=== PATIENT | male | born 1965 | race Caucasian/White ===

== ENCOUNTER 2017-05-27 09:11 | Inpatient (IN) | payer OTHER ==
[~2017-05-27] VITALS: Ht 182.9 cm; Wt 94.1 kg
[2017-05-27 09:25] VITALS: BP 123/78; PULSE 80; RESP 18; TEMP 97.5; O2SAT 98
[2017-05-27 09:32] VITALS: BP 123/78; PULSE 81; RESP 18; TEMP 97.5; O2SAT 98
[2017-05-27] MEDS ORDERED: SODIUM CHLOR 0.9% 1000 ML INJ 1,000 ML IV ONE (09:45)
[2017-05-27] MEDS ORDERED: HYDROmorphone HCL PF 1 MG/ML VIAL IV PUSH ONE (09:45)
[2017-05-27 09:51] LABS: AUTOMATED NEUTROPHIL # 12.5 TH/MM3 (1.8-7.7); BASOPHIL # 0.1 TH/MM3 (0-0.2); BASOPHIL % 0.8 % (0.0-2.0); EOSINOPHIL % 0.2 % (0.0-4.0); HEMATOCRIT 42.1 % (39.0-51.0); HEMO FLAGS DIFF FINAL; LYMPH % 6.6 % (9.0-44.0); LYMPHOCYTE # 0.9 TH/MM3 (1.0-4.8); MEAN CELL VOLUME 93.7 FL (80.0-100.0); MEAN CORPUSCULAR HEMOGLOBIN 31.4 PG (27.0-34.0); MEAN CORPUSCULAR HGB CONC 33.5 % (32.0-36.0); MONO % 4.3 % (0.0-8.0); NEUT % 88.1 % (16.0-70.0); PLATELET COUNT 272 TH/MM3 (150-450); RED BLOOD COUNT 4.49 MIL/MM3 (4.50-5.90); RED CELL DISTRIBUTION WIDTH 14.5 % (11.6-17.2); WHITE BLOOD COUNT 14.2 TH/MM3 (4.0-11.0)
[2017-05-27 10:10] LABS: BICARBONATE 28.5 MEQ/L (21.0-32.0); POTASSIUM 3.3 MEQ/L (3.5-5.1)
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
[2017-05-27] MEDS ORDERED: IOHEXOL 350 MG/ML 10 ML VIAL (for RAD DIAG) IV ONE (10:46)
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
[2017-05-27] MEDS ORDERED: LIDOCAINE 1%/EPINEPHrine 1:100,000 SOLN 20 ML VIAL INFIL ONE (11:30)
--- NOTE | 2017-05-27 11:58 | PD ---
Physical Exam Date Seen by Provider: May 27, 2017 Time Seen by Provider: 11:57 Narrative 52-year-old male that presents to the ED for evaluation of laceration to the right elbow. I was asked by my attending to repair laceration. Please refer to her note. Data Data Last Documented VS Vital Signs Date Time Temp Pulse Resp B/P Pulse Ox O2 Delivery O2 Flow Rate FiO2 05/27/17 10:23 18 05/27/17 09:32 80 98 Room Air 05/27/17 09:32 97.5 123/78 Orders Complete Blood Count With Diff (05/27/17 09:26) Basic Metabolic Panel (Bmp) (05/27/17 09:26) ^ Insert Iv (05/27/17 09:26) Ct Brain W/O Iv Contrast(Rout) (05/27/17 ) Ct Cerv Spine W/O Contrast (05/27/17 ) Ct Thorax/ Chest W Iv Contrast (05/27/17 ) Ct Abd/Pel W Iv Contrast(Rout) (05/27/17 ) Ct Facial Bones W/O Iv Cont (05/27/17 ) Wrist, Complete ([id number]) (05/27/17 ) Elbow, Limited (Ap&Lat) (05/27/17 ) Ankle, Complete (Qwa0qac) (05/27/17 ) Shoulder, Limited(2vws) (05/27/17 ) Ct Thor Spine W/O Contrast (05/27/17 ) Hydromorphone Pf Inj (Dilaudid Pf Inj) (05/27/17 09:45) Sodium Chlor 0.9% 1000 Ml Inj (Ns 1000 M (05/27/17 09:45) Iohexol 350 Inj (Omnipaque 350 Inj) (05/27/17 10:46) Fiberglass Sugartong Sp Ad Arm (05/27/17 ) Fiberglass Splint Forearm Adul (05/27/17 ) Sling Cradle Arm (05/27/17 ) Wound Care (05/27/17 11:19) Lidocai-Epi 1%-1:100,000 Inj (Xylocaine- (05/27/17 11:30) Labs Laboratory Tests Test 05/27/17 09:40 White Blood Count 14.2 TH/MM3 Red Blood Count 4.49 MIL/MM3 Hemoglobin 14.1 GM/DL Hematocrit 42.1 % Mean Corpuscular Volume 93.7 FL Mean Corpuscular Hemoglobin 31.4 PG Mean Corpuscular Hemoglobin 33.5 % Concent Red Cell Distribution Width 14.5 % Platelet Count 272 TH/MM3 Mean Platelet Volume 7.0 FL Neutrophils (%) (Auto) 88.1 % Lymphocytes (%) (Auto) 6.6 % Monocytes (%) (Auto) 4.3 % Eosinophils (%) (Auto) 0.2 % Basophils (%) (Auto) 0.8 % Neutrophils # (Auto) 12.5 TH/MM3 Lymphocytes # (Auto) 0.9 TH/MM3 Monocytes # (Auto) 0.6 TH/MM3 Eosinophils # (Auto) 0.0 TH/MM3 Basophils # (Auto) 0.1 TH/MM3 CBC Comment DIFF FINAL Differential Comment Sodium Level 141 MEQ/L Potassium Level 3.3 MEQ/L Chloride Level 106 MEQ/L Carbon Dioxide Level 28.5 MEQ/L Anion Gap 7 MEQ/L Blood Urea Nitrogen 6 MG/DL Creatinine 0.99 MG/DL Estimat Glomerular Filtration 80 ML/MIN Rate Random Glucose 114 MG/DL Calcium Level 8.2 MG/DL [facility] Medical Record Reviewed: Yes Supervised Visit with IAN: No Procedures Procedure Narrative LACERATION LOCATION: Right elbow LENGTH: 6 cm NUMBER OF STITCHES/DAJUAN: 16 dajuan REPAIR: The area of the laceration was prepped with Betadine and sterilely draped. The laceration was infiltrated with 1% Xylocaine. The wound was copiously irrigated and explored without evidence of foreign body, tendon injury or neurovascular injury. The wound was closed using sterile stapler. This was a 1 layer repair. A sterile dressing was applied. The patient was advised to keep the dressing clean and dry. Patient tolerated the procedure well. Tho Lindquist May 27, 2017 11:58
[2017-05-27 12:00] VITALS: BP 115/68; PULSE 80; RESP 18; O2SAT 100
[2017-05-27] MEDS ORDERED: HYDROmorphone HCL PF 1 MG/ML VIAL IVP PRN (12:30)
[2017-05-27] MEDS ORDERED: MISCELLANEOUS NURSING INFORMATION XX SCH (12:30)
[2017-05-27] MEDS ORDERED: ONDANSETRON HCL 4 MG/2 ML VIAL IV PRN (12:30)
[2017-05-27] MEDS ORDERED: CHLORHEXIDINE GLUCONATE 2 % 1 PACK (2 CLOTHS) TOP PRN (12:30)
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
[2017-05-27] MEDS: LACTATED RINGER'S 1000 ML INJ 1,000 ML IV SCH ×2 (14:55→21:39)
[2017-05-27 15:00] VITALS: BP 96/56; PULSE 82; RESP 18; O2SAT 99
[2017-05-27] MEDS: METHOCARBAMOL 500 MG TAB PO SCH ×2 (15:13→21:39)
[2017-05-27] MEDS: HYDROmorphone HCL PF 1 MG/ML VIAL IVP PRN ×2 (15:56→21:40)
[2017-05-27 16:00] VITALS: BP 117/54; PULSE 76; RESP 20; TEMP 96.7; O2SAT 96
[2017-05-27 19:00] VITALS: BP 112/56; PULSE 78; RESP 18; TEMP 98.4; O2SAT 96
[2017-05-27] MEDS: DOCUSATE SODIUM 100 MG CAP PO SCH (21:31)
[2017-05-28] VITALS (9 sets, daily range): BP systolic 106–168; BP diastolic 62–96; PULSE 71–93; RESP 16–19; TEMP 95.7–98.4; O2SAT 93–100
[2017-05-28] MEDS: CHLORHEXIDINE GLUCONATE 2 % 1 PACK (2 CLOTHS) TOP SCH (00:02)
[2017-05-28] MEDS ORDERED: CHLORHEXIDINE GLUCONATE 2 % 1 PACK (2 CLOTHS) TOPICAL PRN (00:15)
[2017-05-28] MEDS ORDERED: SODIUM CHLORID 0.9% 500 ML IV PRN (00:15)
[2017-05-28] MEDS ORDERED: INSULIN HUMAN REGULAR 1,000 UNITS/10 ML VIAL SQ PRN (00:15)
[2017-05-28] MEDS ORDERED: POVIDONE IODINE 5% (ANTISEPSIS KIT) 4 APPLICATIONS EACH NARE PRN (00:15)
[2017-05-28] MEDS ORDERED: LACTATED RINGER'S 1000 ML IV PRN (00:15)
[2017-05-28] MEDS ORDERED: METOPROLOL TARTRATE 25 MG TAB PO PRN (00:15)
[2017-05-28] MEDS: HYDROmorphone HCL PF 1 MG/ML VIAL IVP PRN ×2 (02:16→06:23)
[2017-05-28] MEDS: METHOCARBAMOL 500 MG TAB PO SCH ×3 (04:45→20:46)
[2017-05-28] MEDS ORDERED: BUPIVACAINE HCL PF 0.25% 30 ML VIAL ONE (06:11)
[2017-05-28] MEDS ORDERED: GENTAMICIN SULFATE 80 MG/2 ML VIAL ONE (06:12)
[2017-05-28] MEDS ORDERED: LIDOCAINE HCL 1% 50 ML VIAL ONE (06:12)
[2017-05-28] MEDS: DOCUSATE SODIUM 100 MG CAP PO SCH ×2 (07:19→20:46)
[2017-05-28] MEDS: LACTATED RINGER'S 1000 ML INJ 1,000 ML IV SCH ×2 (07:22→20:00)
[2017-05-28] MEDS ORDERED: VANCOMYCIN HCL 1000 MG VIAL ONE (08:07)
[2017-05-28] MEDS ORDERED: ceFAZolin 2 GM PREMIX 50 ML ONE (08:07)
[2017-05-28 08:30] LABS: AUTOMATED NEUTROPHIL # 11.2 TH/MM3 (1.8-7.7); BASOPHIL % 0.1 % (0.0-2.0); EOSINOPHIL % 0.1 % (0.0-4.0); HEMATOCRIT 38.9 % (39.0-51.0); HEMO FLAGS DIFF FINAL; LYMPH % 8.9 % (9.0-44.0); LYMPHOCYTE # 1.2 TH/MM3 (1.0-4.8); MEAN CELL VOLUME 93.7 FL (80.0-100.0); MEAN CORPUSCULAR HEMOGLOBIN 31.6 PG (27.0-34.0); MEAN CORPUSCULAR HGB CONC 33.7 % (32.0-36.0); MONO % 8.1 % (0.0-8.0); NEUT % 82.8 % (16.0-70.0); PLATELET COUNT 218 TH/MM3 (150-450); RED BLOOD COUNT 4.15 MIL/MM3 (4.50-5.90); RED CELL DISTRIBUTION WIDTH 14.5 % (11.6-17.2); WHITE BLOOD COUNT 13.6 TH/MM3 (4.0-11.0)
[2017-05-28 08:48] LABS: BICARBONATE 26.9 MEQ/L (21.0-32.0); POTASSIUM 3.2 MEQ/L (3.5-5.1)
[2017-05-28] MEDS: DEXT 5%-NACL 0.45% 1000 ML INJ 1,000 ML IV SCH ×2 (09:36→16:30)
--- NOTE | 2017-05-28 09:36 | RADRPT ---
EXAM DATE/TIME: 05/28/2017 09:10 [facility] COMPARISON: CT ABDOMEN & PELVIS W CONTRAST, May 27, 2017, 10:39. WRIST LEFT COMPLETE ([id number]), May 27 17, 10:15. INDICATIONS : Open reduction internal fixation of the left wrist. MEDICAL HISTORY : None. SURGICAL HISTORY : None. ENCOUNTER: Subsequent ACUITY: 2 days PAIN SCORE: Non-responsive. LOCATION: Left wrist. FINDINGS: AP and lateral spot fluoroscopic images of the left wrist obtained in the operating room during a pro cedure demonstrates a volar distal radial side plate with multiple interlocking screws. There is surr ounding soft tissue swelling. No unexpected finding is visualized. There is improved anatomic alignme nt. CONCLUSION: Improved anatomic alignment following ORIF of the distal radius. Leroy Lincoln MD on May 28, 2017 at 9:33 Board Certified Radiologist. This report was verified electronically.
[2017-05-28] MEDS ORDERED: HYDR-3288 PO (09:38)
[2017-05-28] MEDS ORDERED: fentaNYL CITRATE 250 MCG/5 ML AMP ONE (09:44)
[2017-05-28] MEDS ORDERED: ACETAMINOPHEN/HYDROcodone 325 MG/7.5 MG TAB PO PRN (09:45)
[2017-05-28] MEDS ORDERED: diphenhydrAMINE HCL 25 MG CAP PO PRN (09:45)
[2017-05-28] MEDS ORDERED: MISCELLANEOUS PHARMACY INFORMATION XX ONE (09:45)
[2017-05-28] MEDS ORDERED: SODIUM CHLORIDE 0.9% FLUSH 5 ML FLUSH IVF PRN (09:45)
[2017-05-28] MEDS ORDERED: MISCELLANEOUS NURSING INFORMATION XX PRN (09:45)
[2017-05-28] MEDS ORDERED: Post-op Orders (for Pharmacy) MISC XX ONE (09:45)
[2017-05-28] MEDS ORDERED: *morphine SULFATE 8 MG/ML PERIprocedure ONLY ONE (10:10)
[2017-05-28] MEDS ORDERED: DO NOT ADM ANY ANTICOAGULANT DRUGS PRN (10:30)
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
[2017-05-28] MEDS ORDERED: PROPOFOL 200 MG/20 ML AMP IV ONE (12:00)
[2017-05-28] MEDS ORDERED: ONDANSETRON HCL 4 MG/2 ML VIAL IV PUSH ONE (12:00)
[2017-05-28] MEDS ORDERED: MORPHINE SULFATE 4 MG/ML INJ IV ONE (12:00)
[2017-05-28] MEDS ORDERED: NEOSTIGMINE 3 MG/3 ML SYR IV ONE (12:00)
[2017-05-28] MEDS ORDERED: ePHEDrine/NS 25 MG/5 ML SYR IV ONE (12:00)
[2017-05-28] MEDS: CALCIUM/VITAMIN D 250 MG/125 U TAB PO SCH ×2 (13:04→16:34)
[2017-05-28] MEDS: ACETAMINOPHEN/HYDROcodone 325 MG/7.5 MG TAB PO PRN ×3 (13:05→20:46)
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
[2017-05-28] MEDS: SODIUM CHLORIDE 0.9% FLUSH 5 ML FLUSH IVF SCH (20:46)
[2017-05-28] MEDS: DOCUSATE SODIUM 50 MG/SENNA 8.6 MG TAB PO SCH (20:46)
[2017-05-29] MEDS: HYDROmorphone HCL PF 1 MG/ML VIAL IVP PRN (00:07)
[2017-05-29] MEDS: ACETAMINOPHEN/HYDROcodone 325 MG/7.5 MG TAB PO PRN ×5 (01:48→20:31)
[2017-05-29] MEDS: CHLORHEXIDINE GLUCONATE 2 % 1 PACK (2 CLOTHS) TOP SCH (03:13)
[2017-05-29] MEDS: DEXT 5%-NACL 0.45% 1000 ML INJ 1,000 ML IV SCH ×2 (03:13→07:54)
[2017-05-29 03:15] VITALS: BP 137/64; PULSE 82; RESP 18; TEMP 96.7; O2SAT 95
[2017-05-29] MEDS: METHOCARBAMOL 500 MG TAB PO SCH ×3 (05:09→21:22)
[2017-05-29] MEDS: LACTATED RINGER'S 1000 ML INJ 1,000 ML IV SCH ×2 (05:11→07:55)
[2017-05-29 07:39] VITALS: BP 132/65; PULSE 85; RESP 16; TEMP 96.6; O2SAT 94
--- NOTE | 2017-05-29 07:43 | RADRPT ---
EXAM DATE/TIME: 05/29/2017 07:31 [facility] COMPARISON: CT THORAX W CONTRAST, May 27, 2017, 10:39. INDICATIONS : Chest pain and shortness of breath. MEDICAL HISTORY : Right side rib fractures. SURGICAL HISTORY : None. ENCOUNTER: Subsequent ACUITY: 2 days PAIN SCORE: 5/10 LOCATION: Right chest FINDINGS: Underinflated portable AP view of the chest demonstrates a normal-sized cardiac silhouette. There is bibasilar airspace opacity. No pleural effusion or pneumothorax is identified. Bones and soft tissues demonstrate no acute finding. Right rib fractures and right clavicle fracture are again visualized. CONCLUSION: Bibasilar air space opacity could represent atelectasis or airspace consolidation. Leroy Lincoln MD on May 29, 2017 at 7:40 Board Certified Radiologist. This report was verified electronically.
[2017-05-29] MEDS: DOCUSATE SODIUM 100 MG CAP PO SCH (07:47)
[2017-05-29] MEDS: DOCUSATE SODIUM 50 MG/SENNA 8.6 MG TAB PO SCH ×2 (07:47→20:30)
[2017-05-29] MEDS: CALCIUM/VITAMIN D 250 MG/125 U TAB PO SCH ×3 (07:47→16:10)
[2017-05-29] MEDS: SODIUM CHLORIDE 0.9% FLUSH 5 ML FLUSH IVF SCH ×2 (07:50→21:00)
[2017-05-29] MEDS: GABAPENTIN 300 MG CAP PO SCH ×3 (09:46→16:10)
[2017-05-29] MEDS: LIDOCAINE HCL 5% PATCH TD SCH (09:47)
[2017-05-29] MEDS: ENOXAPARIN SODIUM 30 MG/0.3 ML SYRINGE SQ SCH ×2 (09:47→20:30)
[2017-05-29] MEDS: MORPHINE SULFATE 4 MG/ML INJ IV PUSH PRN ×2 (09:56→13:03)
--- NOTE | 2017-05-29 10:11 | PD.ORT.PN ---
Subjective Post Op Day #: 1 Subjective Remarks sore. pain tolerable with meds. Objective Vitals Vital Signs Date Time Temp Pulse Resp B/P Pulse Ox O2 Delivery O2 Flow Rate FiO2 05/29/17 07:39 96.6 85 16 132/65 94 05/29/17 03:15 96.7 82 18 137/64 95 05/28/17 23:51 97.2 88 19 128/66 96 05/28/17 21:48 98 Nasal Cannula 2.00 05/28/17 20:01 96.7 76 18 168/96 96 05/28/17 15:39 95.8 81 16 136/62 97 05/28/17 12:00 98 Nasal Cannula 2.00 05/28/17 10:52 95.7 83 16 158/74 94 05/28/17 10:25 98.0 80 18 131/58 96 Nasal Cannula 2 05/28/17 10:15 80 18 131/58 96 Nasal Cannula 2 I/O 05/28/17 05/28/17 05/28/17 05/29/17 05/29/17 05/29/17 07:00 15:00 23:00 07:00 15:00 23:00 Intake Total 835 ml 870 ml 2505 ml 2965 ml Output Total 1400 ml 700 ml 950 ml 4350 ml 100 ml Balance -565 ml 170 ml 1555 ml -1385 ml -100 ml Intake Oral 240 ml 1440 ml 2160 ml IV Total 595 ml 70 ml 1065 ml 805 ml Other 800 ml Output Urine Total 1400 ml 650 ml 950 ml 4350 ml 100 ml Stool Total 0 ml Estimated Blood Loss 50 ml Bladder Scan Volume Amount 782 ml # Voids 0 # Bowel Movements 0 0 0 Result Diagram: 05/28/17 0635 05/28/17 0635 Imaging Last 24 hours Impressions Chest X-Ray 05/29/17 0000 Signed Impressions: Service Date/Time: Monday, May 29, 2017 07:31 - CONCLUSION: Bibasilar air space opacity could represent atelectasis or airspace consolidation. Leroy Lincoln MD Objective Remarks in bed, nad LUE: splint intact, NVI, subjective tingling in fingers, cap refill present LLE: spint removed, skin intact, swelling, neg homans, NVI and sensation intact , pulses palpable RUE: sling in place, NVI, sensation intact, 2+ radial pulse, tenderness and swelling over clavicle and upper ribs Assessment & Plan Ortho Post Op Day #: 1 Problem List: Assessment and Plan s/p ORIF L distal radius fracture POD#1 non-op: L nondisplaced ankle fx, R nondisplaced clavicle fx, R 2nd and 3rd rib fxs NWB LUE, maintain splint fracture boot L ankle, WBAT with boot, LLE: ice and elevation RUE: sling as needed, ok to start gentle ROM as tolerated ortho stable med management f/up dr. baires 2 weeks Mckay Williamson May 29, 2017 10:11
[2017-05-29] MEDS ORDERED: LACTULOSE SYRUP 20 GM/30 ML CUP PO PRN (10:45)
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
[2017-05-29] MEDS ORDERED: RESP: ALBUTEROL 2.5 MG/IPRATROPIUM 0.5 MG NEB (PRN) NEB (11:00)
[2017-05-29 11:44] VITALS: BP 136/74; PULSE 90; RESP 16; TEMP 98.3; O2SAT 94
[2017-05-29 15:19] LABS: HEMATOCRIT 37.5 % (39.0-51.0); REVIEW FLAG FINAL
[2017-05-29 15:35] LABS: BICARBONATE 29.5 MEQ/L (21.0-32.0); POTASSIUM 3.5 MEQ/L (3.5-5.1)
[2017-05-29 16:14] VITALS: BP 176/81; PULSE 90; RESP 16; TEMP 99.1; O2SAT 95
[2017-05-29 16:27] VITALS: O2SAT 95
[2017-05-29] MEDS: REMOVE OLD PATCH T-DERMAL SCH (20:31)
[2017-05-29 20:46] VITALS: BP 145/87; PULSE 99; RESP 18; TEMP 97.5; O2SAT 99
[2017-05-30 00:38] VITALS: BP 124/62; PULSE 85; RESP 18; TEMP 98.5; O2SAT 98
[2017-05-30] MEDS: ACETAMINOPHEN/HYDROcodone 325 MG/7.5 MG TAB PO PRN ×3 (02:36→20:59)
[2017-05-30] MEDS: METHOCARBAMOL 500 MG TAB PO SCH ×3 (06:14→20:58)
[2017-05-30 07:20] VITALS: BP 152/83; PULSE 78; RESP 20; TEMP 96.8; O2SAT 95
[2017-05-30] MEDS: ENOXAPARIN SODIUM 30 MG/0.3 ML SYRINGE SQ SCH ×2 (08:22→20:57)
[2017-05-30] MEDS: DOCUSATE SODIUM 50 MG/SENNA 8.6 MG TAB PO SCH ×2 (08:22→20:57)
[2017-05-30] MEDS: GABAPENTIN 300 MG CAP PO SCH ×3 (08:22→17:28)
[2017-05-30] MEDS: CALCIUM/VITAMIN D 250 MG/125 U TAB PO SCH ×3 (08:22→17:28)
[2017-05-30] MEDS: LIDOCAINE HCL 5% PATCH TD SCH (08:23)
[2017-05-30] MEDS: SODIUM CHLORIDE 0.9% FLUSH 5 ML FLUSH IVF SCH ×2 (08:23→20:57)
[2017-05-30 11:08] VITALS: BP 159/94; PULSE 96; RESP 20; TEMP 96; O2SAT 95
--- NOTE | 2017-05-30 12:41 | PD.ORT.PN ---
Subjective Post Op Day #: 2 Subjective Remarks sore. pain tolerable with meds. still tingling in L hand. Objective Vitals Vital Signs Date Time Temp Pulse Resp B/P Pulse Ox O2 Delivery O2 Flow Rate FiO2 05/30/17 11:08 96.0 96 20 159/94 95 05/30/17 07:20 96.8 78 20 152/83 95 05/30/17 00:38 98.5 85 18 124/62 98 05/29/17 20:46 97.5 99 18 145/87 99 05/29/17 16:27 95 21 05/29/17 16:14 99.1 90 16 176/81 95 I/O 05/29/17 05/29/17 05/29/17 05/30/17 05/30/17 05/30/17 07:00 15:00 23:00 07:00 15:00 23:00 Intake Total 2965 ml 1450 ml 360 ml 480 ml Output Total 4350 ml 2500 ml 1750 ml 2600 ml Balance -1385 ml -1050 ml -1390 ml -2120 ml Intake Oral 2160 ml 1450 ml 360 ml 480 ml IV Total 805 ml Output Urine Total 4350 ml 2500 ml 1750 ml 2600 ml # Voids 2 # Bowel Movements 0 0 0 0 Result Diagram: 05/29/17 1432 05/29/17 1432 Imaging Last 24 hours Impressions Chest X-Ray 05/29/17 0000 Signed Impressions: Service Date/Time: Monday, May 29, 2017 07:31 - CONCLUSION: Bibasilar air space opacity could represent atelectasis or airspace consolidation. Leroy Lincoln MD Objective Remarks sitting in chair, nad LUE: splint intact, NVI, subjective tingling in fingers, cap refill present LLE: fx boot in place, NVI and sensation intact, pulses palpable RUE: sling in place, NVI, sensation intact, 2+ radial pulse, tenderness and swelling over clavicle and upper ribs Assessment & Plan Assessment and Plan s/p ORIF L distal radius fracture POD#2 non-op: L nondisplaced ankle fx, R clavicle fx, R 2nd and 3rd rib fxs NWB LUE, maintain splint fracture boot L ankle, WBAT with boot, LLE: ice and elevation RUE: sling as needed, ok to start gentle ROM as tolerated ortho stable med management f/up dr. baires 2 weeks Mckay Williamson May 30, 2017 12:41
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
[2017-05-30 16:00] VITALS: BP 142/66; PULSE 85; RESP 20; TEMP 97; O2SAT 94
[2017-05-30 19:10] VITALS: BP 178/97; PULSE 88; RESP 19; TEMP 99; O2SAT 98
[2017-05-30] MEDS: REMOVE OLD PATCH T-DERMAL SCH (20:57)
[2017-05-31 00:01] VITALS: BP 125/60; PULSE 81; RESP 18; TEMP 96.8; O2SAT 94
[2017-05-31] MEDS: METHOCARBAMOL 500 MG TAB PO SCH ×3 (05:40→22:18)
[2017-05-31] MEDS: ACETAMINOPHEN/HYDROcodone 325 MG/7.5 MG TAB PO PRN ×2 (05:41→17:14)
[2017-05-31 08:00] VITALS: BP 160/96; PULSE 75; RESP 17; TEMP 96; O2SAT 94
[2017-05-31] MEDS: DOCUSATE SODIUM 50 MG/SENNA 8.6 MG TAB PO SCH ×2 (08:00→21:00)
[2017-05-31] MEDS: ENOXAPARIN SODIUM 30 MG/0.3 ML SYRINGE SQ SCH ×2 (08:00→21:00)
[2017-05-31] MEDS: CALCIUM/VITAMIN D 250 MG/125 U TAB PO SCH ×3 (08:00→17:14)
[2017-05-31] MEDS: GABAPENTIN 300 MG CAP PO SCH ×3 (08:00→17:14)
[2017-05-31] MEDS: LIDOCAINE HCL 5% PATCH TD SCH (08:00)
[2017-05-31] MEDS: SODIUM CHLORIDE 0.9% FLUSH 5 ML FLUSH IVF SCH ×2 (09:00→21:00)
--- NOTE | 2017-05-31 09:24 | PD.ORT.PN ---
Subjective Post Op Day #: 3 Subjective Remarks sore. pain tolerable with meds. still tingling in L hand. R arm swollen and painful Objective Vitals Vital Signs Date Time Temp Pulse Resp B/P Pulse Ox O2 Delivery O2 Flow Rate FiO2 05/31/17 08:00 96.0 75 17 160/96 94 05/31/17 00:01 96.8 81 18 125/60 94 05/30/17 19:10 99.0 88 19 178/97 98 05/30/17 16:00 97.0 85 20 142/66 94 05/30/17 11:08 96.0 96 20 159/94 95 I/O 05/30/17 05/30/17 05/30/17 05/31/17 05/31/17 05/31/17 07:00 15:00 23:00 07:00 15:00 23:00 Intake Total 480 ml 960 ml 1440 ml 720 ml Output Total 2600 ml 2350 ml 1100 ml Balance -2120 ml -1390 ml 340 ml 720 ml Intake Oral 480 ml 960 ml 1440 ml 720 ml Output Urine Total 2600 ml 2350 ml 1100 ml # Voids 3 # Bowel Movements 0 0 0 0 Result Diagram: 05/29/17 1432 05/29/17 1432 Imaging Last 24 hours Impressions Chest X-Ray 05/29/17 0000 Signed Impressions: Service Date/Time: Monday, May 29, 2017 07:31 - CONCLUSION: Bibasilar air space opacity could represent atelectasis or airspace consolidation. Leroy Lincoln MD Objective Remarks sitting in chair, nad LUE: splint intact, NVI, subjective tingling in fingers, cap refill present LLE: fx boot in place, NVI and sensation intact, pulses palpable RUE: sling in place, NVI, sensation intact, 2+ radial pulse, tenderness and swelling over clavicle and upper ribs. edema R arm. Laceration R elbow closed with djauan in ER, area scrubbed with soap and water and new dressing applied - erythema around laceration Assessment & Plan Ortho Post Op Day #: 3 Problem List: Assessment and Plan s/p ORIF L distal radius fracture POD#2 non-op: L nondisplaced ankle fx, R clavicle fx, R 2nd and 3rd rib fxs NWB LUE, maintain splint fracture boot L ankle, WBAT with boot, LLE: ice and elevation RUE: sling as needed, ok to start gentle ROM as tolerated. laceration R elbow - scrub with soap and water daily, change dressing. start IV vanco. US RUE xray R clavicle med management f/up dr. baires 2 weeks Mckay Williamson May 31, 2017 09:24
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
[2017-05-31] MEDS ORDERED: LACTULOSE SYRUP 20 GM/30 ML CUP PO ONE (11:00)
--- NOTE | 2017-05-31 11:17 | RADRPT ---
EXAM DATE/TIME: 05/31/2017 10:19 [facility] COMPARISON: No previous studies available for comparison. INDICATIONS : Right arm swelling. MEDICAL HISTORY : Right arm edema. Right elbow laceration. SURGICAL HISTORY : Double hernia repair. ORIF left distal radius. ENCOUNTER: Initial ACUITY: 3 days PAIN SCORE: 0/10 LOCATION: Right arm. FINDINGS: There is spontaneous flow documented in the brachial, basilic, cephalic, axillary, and subclavian vei ns. The vessels are compressible and augmentation response is documented. No filling defects are se en. The flow is phasic with respiration. Direction of flow in the jugular vein is caudal. CONCLUSION: No evidence of deep or superficial venous thrombosis. Anton Freeman MD on May 31, 2017 at 11:15 Board Certified Radiologist. This report was verified electronically.
[2017-05-31] MEDS: VANCOMYCIN INJ 1,000 MG in SODIUM CHLOR 0.9% 250 ML INJ 250 ML IV SCH ×2 (11:36→22:18)
[2017-05-31 12:00] VITALS: BP 141/69; PULSE 81; RESP 18; TEMP 96.1; O2SAT 99
[2017-05-31 12:50] LABS: AUTOMATED NEUTROPHIL # 6.5 TH/MM3 (1.8-7.7); BASOPHIL # 0.1 TH/MM3 (0-0.2); BASOPHIL % 0.7 % (0.0-2.0); EOSINOPHIL # 0.2 TH/MM3 (0-0.4); EOSINOPHIL % 1.9 % (0.0-4.0); HEMATOCRIT 35.9 % (39.0-51.0); HEMO FLAGS DIFF FINAL; LYMPH % 13.1 % (9.0-44.0); LYMPHOCYTE # 1.1 TH/MM3 (1.0-4.8); MEAN CELL VOLUME 93.3 FL (80.0-100.0); MEAN CORPUSCULAR HEMOGLOBIN 32.4 PG (27.0-34.0); MEAN CORPUSCULAR HGB CONC 34.8 % (32.0-36.0); MONO % 9.2 % (0.0-8.0); NEUT % 75.1 % (16.0-70.0); PLATELET COUNT 275 TH/MM3 (150-450); RED BLOOD COUNT 3.84 MIL/MM3 (4.50-5.90); RED CELL DISTRIBUTION WIDTH 14.1 % (11.6-17.2); WHITE BLOOD COUNT 8.6 TH/MM3 (4.0-11.0)
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
[2017-05-31 16:00] VITALS: BP 116/63; PULSE 87; RESP 18; TEMP 97.5; O2SAT 97
[2017-05-31 19:08] VITALS: BP 177/97; PULSE 90; RESP 19; TEMP 96.7; O2SAT 97
[2017-05-31 23:29] VITALS: BP 152/71; PULSE 87; RESP 18; TEMP 96.8; O2SAT 96
[2017-06-01 04:00] VITALS: BP 141/66; PULSE 78; RESP 18; TEMP 96.7; O2SAT 97
[2017-06-01] MEDS: METHOCARBAMOL 500 MG TAB PO SCH (06:00)
[2017-06-01 07:42] VITALS: BP 170/90; PULSE 82; RESP 18; TEMP 97.5; O2SAT 97
--- NOTE | 2017-06-01 08:59 | PD.ORT.PN ---
Subjective Post Op Day #: 4 Subjective Remarks doing much better, pain improved. still tingling in L hand, but improving. R arm swollen and painful, also improving. Objective Vitals Vital Signs Date Time Temp Pulse Resp B/P Pulse Ox O2 Delivery O2 Flow Rate FiO2 06/01/17 07:42 97.5 82 18 170/90 97 06/01/17 04:00 96.7 78 18 141/66 97 05/31/17 23:29 96.8 87 18 152/71 96 05/31/17 19:08 96.7 90 19 177/97 97 05/31/17 18:10 16 05/31/17 16:00 97.5 87 18 116/63 97 05/31/17 12:00 96.1 81 18 141/69 99 I/O 05/31/17 05/31/17 05/31/17 06/01/17 06/01/17 06/01/17 06:59 14:59 22:59 06:59 14:59 22:59 Intake Total 720 ml 1320 ml 360 ml Balance 720 ml 1320 ml 360 ml Intake Oral 720 ml 1320 ml 360 ml # Voids 3 6 3 # Bowel Movements 0 1 0 Result Diagram: 05/31/17 1230 05/29/17 1432 Imaging Last 24 hours Impressions Chest X-Ray 05/29/17 0000 Signed Impressions: Service Date/Time: Monday, May 29, 2017 07:31 - CONCLUSION: Bibasilar air space opacity could represent atelectasis or airspace consolidation. Leroy Lincoln MD Objective Remarks sitting in chair, nad LUE: splint intact but loosening, NVI, subjective tingling in fingers, cap refill present LLE: fx boot in place, NVI and sensation intact, pulses palpable RUE: sling in place, NVI, sensation intact, 2+ radial pulse, tenderness and swelling over clavicle and upper ribs. edema R arm. Laceration R elbow dressing c/d/i Assessment & Plan Ortho Post Op Day #: 4 Problem List: Assessment and Plan s/p ORIF L distal radius fracture POD#4 non-op: L nondisplaced ankle fx, R clavicle fx, R 2nd and 3rd rib fxs R displaced clavicle fx - patient declines surgery, continue conservative care NWB LUE, place a new splint fracture boot L ankle, WBAT with boot, LLE: ice and elevation RUE: doppler US neg, sling as needed, ok to start gentle ROM as tolerated. laceration R elbow - scrub with soap and water daily, change dressing. start IV vanco. rec d/c on po bactim ds US RUE - neg xray R clavicle - displaced, declines sx med management ortho stable patient lives in [place] and would like to f/up with ortho there. patient would benefit from copy of op notes and xrays f/up dr. baires 2 weeks if patient remains in [facility] Mckay Williamson Jun 01, 2017 08:59
[2017-06-01] MEDS: DOCUSATE SODIUM 50 MG/SENNA 8.6 MG TAB PO SCH (09:00)
[2017-06-01] MEDS: SODIUM CHLORIDE 0.9% FLUSH 5 ML FLUSH IVF SCH (09:00)
[2017-06-01] MEDS: GABAPENTIN 300 MG CAP PO SCH ×2 (09:38→13:00)
[2017-06-01] MEDS: VANCOMYCIN INJ 1,000 MG in SODIUM CHLOR 0.9% 250 ML INJ 250 ML IV SCH (09:38)
[2017-06-01] MEDS: CALCIUM/VITAMIN D 250 MG/125 U TAB PO SCH ×2 (09:38→13:00)
[2017-06-01] MEDS: ENOXAPARIN SODIUM 30 MG/0.3 ML SYRINGE SQ SCH (09:39)
[2017-06-01] MEDS ORDERED: MORPHINE SULFATE 4 MG/ML INJ ONE (10:32)
[2017-06-01] MEDS ORDERED: BACT800T5 PO (10:57)
[2017-06-01 11:29] VITALS: BP 169/84; PULSE 87; RESP 18; TEMP 95.9; O2SAT 97
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
== END 2017-06-01 14:04 | disposition home or self-care (01) | DRG 511 ==
LOC: NEPC 09:11 → NEDA 12:09 → N06B 15:38
PROVIDERS: ADMIT Surgery Trauma Surgery; ATTEND Surgery Trauma Surgery
PROC: 0HQDXZZ Repair Right Lower Arm Skin, External Approach (ICD-10-PCS; 2017-05-27)
PROC: 0PSJ04Z Reposition Left Radius with Internal Fixation Device, Open Approach (ICD-10-PCS; principal; 2017-05-28 07:59)
DX: S52.502A Unspecified fracture of the lower end of left radius, initial encounter for closed fracture (principal); S22.41XA Multiple fractures of ribs, right side, initial encounter for closed fracture; S02.19XA Other fracture of base of skull, initial encounter for closed fracture; S82.62XA Displaced fracture of lateral malleolus of left fibula, initial encounter for closed fracture; S42.024A Nondisplaced fracture of shaft of right clavicle, initial encounter for closed fracture; S62.307A Unspecified fracture of fifth metacarpal bone, left hand, initial encounter for closed fracture; V29.49XA Motorcycle driver injured in collision with other motor vehicles in traffic accident, initial encounter; Y92.488 Other paved roadways as the place of occurrence of the external cause; Y93.89 Activity, other specified; S51.011A Laceration without foreign body of right elbow, initial encounter; F17.200 Nicotine dependence, unspecified, uncomplicated; R20.2 Paresthesia of skin; R60.0 Localized edema; Z88.0 Allergy status to penicillin; M25.511 Pain in right shoulder
CPT/HCPCS: 12002; 70450; 70486; 71010; 71260; 72125; 72128; 73000; 73030; 73070; 73100; 73110; 73610; 74177; 76000; 80048; 85014; 85018; 85025; 93971; 94150; 94640; 96361; 96374; C1713; J0690; J1170; J1580; J1650; J2270; J2405; J2710; J3010; J3370; J7030; J7050; J7120; L2114; Q9967